=== PATIENT | male | born 1995 | race Caucasian/White ===

== ENCOUNTER 2025-01-06 06:08 | Emergency (ER) | payer BC, SELFPAY ==
--- NOTE | ~2025-01-06 | CT_ITS ---
CLINICAL INDICATION: Epigastric abdominal pain COMPARISON: None. TECHNIQUE: Multiple contiguous axial images of the abdomen and pelvis were performed following the ad ministration of with 100 mL Omnipaque-350 intravenous contrast The dose-length product (DLP) was 1369.23 mGy-cm. Automated exposure control and iterative reconstruction technique were employed. FINDINGS/OBSERVATIONS: Visualized lower thorax: The bilateral lung bases are clear. The heart is of normal size, without pericardial effusion. Small hiatal hernia is present. Liver: The liver demonstrates homogeneous enhancement and is enlarged measuring 20 cm in longitudinal dimens ion. Gallbladder and biliary system: The gallbladder is only minimally distended, and otherwise unremarkable. Pancreas: The pancreas enhances homogeneously without ductal dilatation. Spleen: The spleen enhances homogeneously and is not enlarged. Kidneys: Multiple well-circumscribed foci of fluid attenuation within the bilateral kidneys, represen ting a (likely) simple cysts, but too small to characterize. The remainder of the bilateral kidneys otherwise enhance symmetrically without hydronephrosis or adis l calculi. Adrenal glands: Unremarkable. Gastrointestinal tract: Mural thickening within the fluid-filled distended stomach and duodenum with surrounding inflammatory change, findings consistent with (likely) gastroduodenitis. Fecal stasis within the colon. Appendix: The air-filled appendix is of normal caliber (axial series, images 144 through 160). Vasculature: Unremarkable. Lymph nodes: No pathologically enlarged or morphologically suspicious lymph nodes within the retroperitoneum or at the root of the mesentery. Scattered nonpathologically enlarged lymph nodes within the retroperitoneum and at the root of the me sentery. Pelvic structures: The bladder is only minimally distended, and otherwise unremarkable. The prostate gland is not enlarged. Body wall and musculoskeletal: No significant degenerative disease within the lower thoracic or lumbosacral spine. IMPRESSION: Findings suggesting acute gastroduodenitis, as detailed above. Multiple (likely) simple cysts within the bilateral kidneys. Reviewed, dictated and finalized at location A.
--- OUTSIDE RECORDS SUMMARY | 2025-01-06 06:10 | XMS_ITS | Continuity of Care Document ---
Author Organization [facility] Address [address] [place] [address] Phone Care Team Providers Care Resourcing Advisor Name Role Phone Unavailable Unavailable Unavailable Advance Directives Directive Yes / No Effective Date File Name No Information Encounters Encounter Description Practice Location Reason(s) For Visit Diagnoses Date Provider Providers Copied on Encounter [facility], [address], [place], [address], [place] tel:[phone] [facility] No Information No Information Referring Provider: ROBERT CROUCH E, [address], [place], [address]. tel:[phone] Family History Family Member Type Diagnosis Age At Onset No Information Payers Payer name Insurance type Covered republican ID Authoriza tion(s) [facility] IN[facility]MNITY [id number] Social History Type Description Quantity Date Captured Comments Sex Male Smoking Status No Information Chief Complaint And Reason For Visit No Information History Of Present Illness Encounter Date Complaint History Of Prese nt Illness No Information Instructions Date Instruction Additional Infor mation No Information Assessments Type Assessment Date No Information
--- OUTSIDE RECORDS SUMMARY | 2025-01-06 06:10 | XMS_ITS | Clinical Summary ---
Author Organization [facility] Address [address] [place] [id number] Care Team Providers Care Software Controls Engineer Name Role Phone Unavailable Primary Care Provider Unavailabl e Social History Tobacco Use Types Packs/Day Years Used Date Smoking Tobacco: Never Assessed Sex and Gender Information Value Date Recorded Sex Assigned at Not on file Legal Sex Male 11:38 AM CDT Gender Identity Not on file Sexual Orientation Not on file Plan of Treatment Health Maintenance Due Date Last Done Comments Hepatitis C Virus (HCV) Screening 1995 SARS-COV-2 Immunization ( season) 2024 Influenza Immunization (#1) 02/06/202506/2013, 04/27/2013, 04/03/2012, Additional history exists Respiratory Syncytial Virus (RSV) Immunization (Adult) (1 - 1-dose 75+ series) 2071 Hepatitis B Immunization Completed 997, 1996, 1996 DTaP/Tdap/Td Immunization Discontinued 2006, 09/23/2001, 01/09/1998, Additional history exists TdaP Immunization Completed 11/13/2006 Meningococcal Immunization (ACWY) Completed 09/19/2014, 02/14/2011 Human Papillomavirus (HPV) Immunization Completed 01/20/2015, 09/19/2014, 03/08/2014 Pneumococcal Immunization Combined Aged Out No longer eligible based on patient's age to complete this topic Rotavirus Immunization Aged Out No lo nger eligible based on patient's age to complete this topic
[2025-01-06 06:17] VITALS: BP 140/88; PULSE 67; RESP 16; TEMP 36.6; O2SAT 98
[2025-01-06 06:32] LABS: Hematocrit 43.7 % (42.0-52.0); Hemoglobin 14.8 g/dL (14.0-18.0); Immature Granulocyte Percent A 0.4 % (0-0.5); Lymphocytes Absolute Auto 2.07 K/mm3 (0.9-3.2); Mean Corpuscular HGB Conc 33.9 g/dl (32-36); Mean Corpuscular Hemoglobin 29.2 pg (26-34); Mean Corpuscular Volume 86.4 fl (80-100); Nucleated Red Blood Cells Absolute Auto 0.000 K/mm3 (0.0-0.012); Nucleated Red Blood Cells Perc 0.0 % (0.0-0.2); Platelet Count Result 352 k/mm3 (150-375); Red Blood Count 5.06 M/mm3 (4.6-6.20); White Blood Count 12.6 K/mm3 (4.5-10.0)
[2025-01-06 06:56] LABS: Add Urine Microscopic? YES; Appearance Urine Cloudy (Clear); Glucose Urine UA Negative (Negative); Leukocyte Esterase Ur Negative LEU/UL (Negative); Nitrate Urine Negative (Negative); Non Pathogenic Casts 0-2; Specific Grav Ur 1.021 (1.001-1.035)
[2025-01-06 06:58] LABS: Alanine Aminotransferase 36 U/L (6-50); Albumin Level 4.5 g/dL (3.5-5.1); Alkaline Phosphatase 57 U/L (38-126); Anion Gap 9 mmol/L (4-12); Aspartate Amino Transferase 28 U/L (17-59); Bilirubin,Total 0.6 mg/dL (0.2-1.3); Blood Urea Nitrogen 11 mg/dL (9-20); Calcium 10.0 mg/dL (8.4-10.2); Carbon Dioxide 27 mmol/L (22-30); Chloride 102 mmol/L (98-107); Estimated CRCL calculation 165 ml/min; Estimated Glomerular Filt Rate > 60; Glucose 141 mg/dL (65-110); Lipase 113 U/L (23-300); Potassium 3.9 mmol/L (3.4-5.0); Sodium 138 mmol/L (137-145); Total Protein 7.7 g/dL (6.3-8.2)
[2025-01-06 07:48] VITALS: BP 139/90; PULSE 75; RESP 17; O2SAT 97
--- OUTSIDE RECORDS SUMMARY | 2025-01-06 07:53 | XMS_ITS | Clinical Summary ---
Author Organization [facility] Address [address] [place] [phone] Care Team Providers Care Charge Attendant Name Role Phone Unavailable Primary Care Provider [...]
--- OUTSIDE RECORDS SUMMARY | 2025-01-06 07:53 | XMS_ITS | Continuity of Care Document ---
Author Organization [facility] Address [address] [place] [address] Phone Care Team Providers Care Collar Separator Name Role Phone Unavailable Unavailable Unavailable Advance Directives Directive Yes / No Effective Date File Name No Information Encounters Encounter Description Practice Location Reason(s) For Visit Diagnoses Date Provider Providers Copied on Encounter [facility], [address], [place], [address], [place] tel:[phone] [facility] No Information No Information Referring Provider: ROBERT CROUCH E, [address], [place], [address]. tel:[phone] Family History Family Member Type Diagnosis Age At Onset No Information Payers Payer name Insurance type Covered republican ID Authoriza tion(s) [facility] INDEMNITY [id number] Social History Type Description Quantity Date Captured Comments Sex Male Smoking Status No Information Chief Complaint And Reason For Visit No Information History Of Present Illness Encounter Date Complaint History Of Prese nt Illness No Information Instructions Date Instruction Additional Infor mation No Information Assessments Type Assessment Date No Information
--- OUTSIDE RECORDS SUMMARY | 2025-01-06 07:53 | XMS_ITS | Clinical Summary ---
Author Organization [facility] Address [address] [place] [id number] Care Team Providers Care Income Tax Analyst Name Role Phone Unavailable Primary Care Provider Unavailabl e Social History Tobacco Use Types Packs/Day Years Used Date Smoking Tobacco: Never Assessed Sex and Gender Information Value Date Recorded Sex Assigned at Not on file Legal Sex Male 8:37 PM CDT Gender Identity Not on file Sexual Orientation Not on file Last Filed Vital Signs Vital Sign Reading Time Taken Comments Blood Pressure 124/66 11/20/2014 11:00 AM CDT Pulse - - Temperature - - Respiratory Rate - - Oxygen Saturation - - Inhaled Oxygen Concentration - - Weight 108.9 kg (240 lb) 11/20/2014 11:00 AM CDT Height 167.6 cm (5' 6) 11/20/2014 11:00 AM CDT Body Mass Index 38.74 11/20/2014 11:00 AM CDT Plan of Treatment Health Maintenance Due Date Last Done Comments Annual Physical 1999 Hepatitis C 2014 DTaP, Tdap and Td Vaccines ( 1 - Tdap) 2015 Hepatitis B Vaccines (1 of 3 - 19+ 3-dose series) 2015 HPV Vaccines (1 - 3-dose SCD M series) 2023 COVID-19 Vaccine ( - 2023-2 5 season) 2024 Meningococcal B Vaccine Aged Out No l onger eligible based on patient's age to complete this topic Meningococcal Vaccine Aged Out No demar florinda eligible based on patient's age to complete this topic Pneumococcal Vaccine: Pediat rics (0 to 5 Years) and At-Risk Patients (6 to 49 Years) Aged Out No longer eligible b ased on patient's age to complete this topic RSV Immunizations Under 20 Months Aged Out No longer eligible based on patient's age to complete this topic
--- NOTE | 2025-01-06 08:27 | ED_ITS ---
HPI - General Adult General Chief complaint: Abdominal Pain Stated complaint: abd pain Time Seen by Provider: 01/06/25 07:04 History of Present Illness HPI narrative: 29 year old male present to the emergency department for evaluation for upper abdominal pain. Patient does have history of diabetes does take tirzepatide and metformin. Patient states he was having increased pain last night but does feel to be improved now. Patient describes left upper quadrant epigastric pain. Patient did have Light's last night. Patient denies any heavy alcohol use, denies any NSAID use, patient does take Tylenol for pain control. Patient does have associated nausea. Related Data Allergies Allergy/AdvReac Type Severity Reaction Status Date / Time No Known Allergies Allergy Verified 01/06/25 08:30 Review of Systems 2 Review of Systems: All systems reviewed & are unremarkable except as noted in HPI and below Exam 2 Narrative: APPEARANCE: Well appearing, no pain, no distress, well-nourished. HEAD: normocephalic, atraumatic. EYES: PERRLA/EOMI, conjunctivae clear. NOSE: Normal no drainage EARS:TMS clear with good light reflex. THROAT: Pharynx clear, no exudate. NECK: Supple. No adenopathy, no masses. RESPIRATORY: Airway patent, respirations nonlabored. Clear to auscultation bilaterally, no rales, rhonchi, wheezing. CARDIOVASCULAR: Regular rate and rhythm without murmurs rubs or gallops. ABDOMINAL: No abdominal tenderness to palpation with normal bowel sounds, nonsurgical at MUSCULOSKELETAL: Moves all extremities. Strength/ROM intact, No edema, No calf tenderness. NEURO: Alert. Cranial nerves II through XII intact. Good gait. Good coordination SKIN: Warm, dry. Normal Color Course Vital Signs Vital signs: Vital Signs Temperature 97.9 F 01/06/25 06:17 Pulse Rate 67 01/06/25 06:17 Respiratory Rate 16 01/06/25 06:17 Blood Pressure 140/88 01/06/25 06:17 Pulse Oximetry 98 01/06/25 06:17 Oxygen Delivery Room Air 01/06/25 06:17 Temperature 97.9 F 01/06/25 06:17 Pulse Rate 71 01/06/25 08:44 Respiratory Rate 13 01/06/25 08:44 Blood Pressure 135/91 H 01/06/25 08:44 Pulse Oximetry 96 01/06/25 08:44 Oxygen Delivery Room Air 01/06/25 06:17 Medical Decision Making MDM Narrative Medical decision making narrative: 29-year-old male present to the emergency department for evaluation for abdominal pain. Patient is currently afebrile with no leukocytosis hemoglobin of 14.8. No acute abnormalities on the patient's CMP including a normal lipase. UA was negative for infection. CT scan does show gastroduodenitis. Patient was treated with IV Protonix and IV Zofran emergency department. Patient will be discharged home with instructions for a gastritis/esophagitis diet along with avoiding alcohol, NSAIDs to have follow-up with primary care physician for additional GI follow-up Differential Diagnosis Differential Diagnosis: Gastritis, duodenitis, colitis, diverticulitis, appendicitis, pancreatitis Vital Signs Vital Signs: Vital Signs Temperature 97.9 F 01/06/25 06:17 Pulse Rate 67 01/06/25 06:17 Respiratory Rate 16 01/06/25 06:17 Blood Pressure 140/88 01/06/25 06:17 Pulse Oximetry 98 01/06/25 06:17 Oxygen Delivery Room Air 01/06/25 06:17 Temperature 97.9 F 01/06/25 06:17 Pulse Rate 71 01/06/25 08:44 Respiratory Rate 13 01/06/25 08:44 Blood Pressure 135/91 H 01/06/25 08:44 Pulse Oximetry 96 01/06/25 08:44 Oxygen Delivery Room Air 01/06/25 06:17 Lab Data Lab results reviewed: Yes I reviewed the patient's lab results. 01/06/25 06:26 01/06/25 06:26 Labs: Lab Results 01/06/25 01/06/25 Range/Units 06:26 06:45 WBC 12.6 H (4.5-10.0) K/mm3 RBC 5.06 (4.6-6.20) M/mm3 Hgb 14.8 (14.0-18.0) g/dL Hct 43.7 (42.0-52.0) % MCV 86.4 (80-100) fl MCH 29.2 (26-34) pg MCHC 33.9 (32-36) g/dl RDW 12.5 (11.5-14.5) % Plt Count 352 (150-375) k/mm3 MPV 9.2 (7.4-10.4) fl Immature Gran % (Auto) 0.4 (0-0.5) % Neut % (Auto) 76.2 H (45.5-73.1) % Lymph % (Auto) 16.4 L (18.3-44.2) % [place] % (Auto) 6.6 (2.6-8.5) % Eos % (Auto) 0.2 (0-4.4) % Baso % (Auto) 0.2 (0.2-1.2) % Lymph # (Auto) 2.07 (0.9-3.2) K/mm3 [place] # (Auto) 0.8 H (0.1-0.6) K/mm3 Eos # (Auto) 0.0 (0-0.3) K/mm3 Baso # (Auto) 0.0 (0.0-0.1) K/mm3 Abs Immat Gran (auto) 0.05 H (0.00-0.031) K/mm3 Absolute Neuts (auto) 9.6 H (1.3-6.7) K/mm3 Absolute Nucleated RBC 0.000 (0.0-0.012) K/mm3 Nucleated RBC % 0.0 (0.0-0.2) % Sodium 138 (137-145) mmol/L Potassium 3.9 (3.4-5.0) mmol/L Chloride 102 (98-107) mmol/L Carbon Dioxide 27 (22-30) mmol/L Anion Gap 9 (4-12) mmol/L BUN 11 (9-20) mg/dL Creatinine 0.71 (0.7-1.3) mg/dL Estim Creat Clear Calc 165 ml/min Estimated GFR > 60 (59 - ) Glucose 141 H (65-110) mg/dL Calcium 10.0 (8.4-10.2) mg/dL Total Bilirubin 0.6 (0.2-1.3) mg/dL AST 28 (17-59) U/L ALT 36 (6-50) U/L Alkaline Phosphatase 57 (38-126) U/L Total Protein 7.7 (6.3-8.2) g/dL Albumin 4.5 (3.5-5.1) g/dL Lipase 113 (23-300) U/L Urine Color Yellow (Yellow) Urine Appearance Cloudy H (Clear) Urine pH 8.5 (5.0-9.0) Ur Specific [place] 1.021 (1.001-1.035) Urine Protein Negative (Negative) mg/dL Urine Glucose (UA) Negative (Negative) mg/dL Urine Ketones Trace H (Negative) mg/dL Ur Blood (Man) Negative (Negative) Urine Nitrate Negative (Negative) Urine Bilirubin Negative (Negative) Urine Urobilinogen 1.0 (<2.0) mg/dL Leukocyte Esterase Rfl Negative (Negative) FARZANA/UL Urine RBC 0-2 (0-2) /hpf Urine WBC 0-5 (0-3) /hpf Ur Squamous Epith Cells None seen (Few) /hpf Urine Bacteria None seen /hpf Urine Casts 0-2 Imaging Data Radiologist's impression: Impressions Abdomen/Pelvis CT 01/06/25 07:29 IMPRESSION: Findings suggesting acute gastroduodenitis, as detailed above. Multiple (likely) simple cysts within the bilateral kidneys. Discharge Plan Discharge Clinical Impression: Gastritis/duodenitis Patient Disposition: Home Condition: Stable Instructions: Antibiotic Form, Diet for Stomach Ulcers and Gastritis (ED), Abdominal Pain (ED), Duodenitis (ED) Additional Instructions: Avoid NSAIDs, avoid alcohol follow a bland diet. Omeprazole as directed for the next 14 days. Zofran as needed for nausea control. Have close follow-up with your primary care physician regarding continuing your home medications. You will need close follow-up with GI. If you have any worsening symptoms then please call or return to the emergency department. Patient Language: Citizen Of [place] Prescriptions: New omeprazole 20 mg capsule,delayed release(DR/EC) 20 mg PO DAILY 14 Days Qty: 14 0RF ondansetron 4 mg tablet,disintegrating 4 mg PO Q8H PRN (Reason: nausea and vomiting) Qty: 14 0RF Follow-up/Referrals: Naveed Canales DO [Primary Care Provider] - Galileo Barnett MD [Physician] -
[2025-01-06] MEDS: ONDANSETRON INJ 4 MG/2 ML VIAL IV PUSH (08:38)
[2025-01-06] MEDS: PANTOPRAZOLE SODIUM IV 40 MG VIAL IV PUSH (08:38)
[2025-01-06 08:44] VITALS: BP 135/91; PULSE 71; RESP 13; O2SAT 96
== END 2025-01-06 08:49 | disposition home or self-care (01) ==
PROVIDERS: Emergency Medicine; Emergency Provider Emergency Medicine; PCP Family Medicine
DX: K29.90 Gastroduodenitis, unspecified, without bleeding (principal); E11.9 Type 2 diabetes mellitus without complications; Z79.84 Long term (current) use of oral hypoglycemic drugs; Z79.85 Long-term (current) use of injectable non-insulin antidiabetic drugs; N28.1 Cyst of kidney, acquired
CPT/HCPCS: 36415; 74177; 80053; 81001; 83690; 85025; 96374; 96375; 99284; J2405; J2470; Q9967

== ENCOUNTER 2025-03-10 00:50 | Day surgery (SDC) | payer BC, SELFPAY ==
[2025-02-28 10:22] VITALS: BMI 31.4
[2025-03-10 12:14] VITALS: BP 111/73; PULSE 65; RESP 18; TEMP 36.6; O2SAT 100
[2025-03-10] MEDS: LACTATED RINGERS 1,000 ML 150 ML IV CONT (12:25)
--- NOTE | 2025-03-10 14:08 | WPDANESEPPF ---
Anes - Initial Pre Proc Eval Procedure: Operation Date: 03/10/25 13:30 Proposed Procedures p Esophagogastroduodenoscopy EGD - Galileo Barnett MD Date/Time: 03/10/25 14:08 Surgeon: Galileo Barnett MD Pre Op Diagnosis: Nausea Pre Op Diagnosis: Nausea, Unspecified abdominal pain Patient Data Age: 29 Gender: M Height: 1.8 m Weight: 102.2 kg Last Vital Signs Temp 36.6 C 03/10/25 12:14 Pulse 65 03/10/25 12:14 Resp 18 03/10/25 12:14 BP 111/73 03/10/25 12:14 Pulse Ox 100 03/10/25 12:14 O2 Del Method Room Air 03/10/25 12:14 Allergies Allergy/AdvReac Type Severity Reaction Status Date / Time No Known Allergies Allergy Verified 03/10/25 12:11 Home Medications ?Medication ?Instructions ?Recorded ?Confirmed ?Type omeprazole 20 mg capsule,delayed 20 mg PO DAILY 14 days #14 caps 01/06/25 03/10/25 Rx release ondansetron 4 mg disintegrating 4 mg PO Q8H PRN nausea and 01/06/25 02/28/25 Rx tablet vomiting #14 tabs lisinopril 10 mg tablet 10 mg PO DAILY 01/17/25 03/10/25 History metformin 500 mg tablet 2,000 mg PO DAILY 01/17/25 03/10/25 History rosuvastatin 5 mg tablet 5 mg PO DAILY 01/17/25 03/10/25 History tirzepatide 5 mg/0.5 mL 5 mg subcut WEEKLY 01/17/25 03/10/25 History subcutaneous pen injector (Mounjaro) Laboratory Tests 03/10/25 12:24 POC Capillary Glucose 90 mg/dl (65-105) Patient hx anesthesia problems: none Family hx anesthesia problems: none Results Review: All pre-operative results and documents have been reviewed as part of the pre-operative evaluation. [facility] Past Medical History Medical History Nausea Abdominal pain Social History Social History Smoking status: Never smoker Alcohol intake: never Substance use: never Substance use type: does not use Living arrangements: with family Spiritual care concerns: No Anes - Eval Final PreProcedure Day of Procedure 03/10/25 14:08 Patient weight: normal Heart: regular rate and rhythm Lungs: clear to auscultation and normal air movement Airway: Mallampati scale class II Neurological: alert and oriented Last oral intake: >/= 8 hours ASA classification: II Emergent: no Anesthetic plan: proceed Anesthesia type and monitoring: general GIVS and standard monitoring Results Review: All pre-operative results and documents have been reviewed as part of the pre-operative evaluation. Informed Consent: The patient's anesthetic plan and its attendant risks and benefits were discussed with the patient/family/POA. Questions were solicited and answers provided to the satisfaction of the patient/family/POA.
--- NOTE | 2025-03-10 14:09 | PM.HPGS ---
History of Present Illness History of Present Illness Consent: Risks, benefits, and alternatives have been discussed and questions answered. Patient agrees to proceed with procedure. Chief complaint: Nausea, Unspecified abdominal pain Narrative: Wyatt Brown is a 29 year old male here for egd, 2 months ago presented to ER with abdominal pain, CT scan showed gastroduodenitis, given 2 weeks of omeprazole, no more pain and he has been doing ok. Review of Systems Review of Systems: All systems reviewed & are unremarkable except as noted in HPI and below PMFSH Past Medical History Medical History Nausea Abdominal pain Social History Social History Smoking status: Never smoker Alcohol intake: never Substance use: never Substance use type: does not use Living arrangements: with family Spiritual care concerns: No Meds Home Medications and Allergies Home Medications ?Medication ?Instructions ?Recorded ?Confirmed ?Type omeprazole 20 mg capsule,delayed 20 mg PO DAILY 14 days #14 caps 01/06/25 03/10/25 Rx release ondansetron 4 mg disintegrating 4 mg PO Q8H PRN nausea and 01/06/25 02/28/25 Rx tablet vomiting #14 tabs lisinopril 10 mg tablet 10 mg PO DAILY 01/17/25 03/10/25 History metformin 500 mg tablet 2,000 mg PO DAILY 01/17/25 03/10/25 History rosuvastatin 5 mg tablet 5 mg PO DAILY 01/17/25 03/10/25 History tirzepatide 5 mg/0.5 mL 5 mg subcut WEEKLY 01/17/25 03/10/25 History subcutaneous pen injector (Mounjaro) Allergies Allergy/AdvReac Type Severity Reaction Status Date / Time No Known Allergies Allergy Verified 03/10/25 12:11 Vital Signs Vital Signs - 24 hr 03/10/25 12:14 Temperature 97.9 F Pulse Rate 65 Respiratory Rate 18 Blood Pressure 111/73 Pulse Oximetry 100 Oxygen Delivery Room Air Exam Const: General: comfortable and no acute distress HENMT: Face/Nose/Sinus: Normal nares present Eyes: General: appearance normal, both eyes and all related structures Resp: Auscultation: clear to auscultation bilaterally Cardio: Rate: regular rate Rhythm: regular rhythm GI: Inspection: non-distended GI Palp: Yes Soft to palpation Skin: General skin exam: normal color Extrem: General: normal to inspection Psych: Mental Status: mental status grossly normal Assessment and Plan Assessment and plan (1) Abdominal pain: Code(s): R10.9 - Unspecified abdominal pain Status: Acute Assessment and Plan: egd with bx
--- NOTE | 2025-03-10 14:19 | S_PTH ---
PATIENT: Wyatt Camarena LOC: [facility] Black#:[id number] AGE/SX: 29/M ROOM: RE03/10/[address]: Galileo Barnett MD : 1995 BED: DIS: 03/10/2025 SPEC #: [id number] RECD: 03/13/25 09:01 STATUS: YAHAIRA REDangelo #: [id number] THANH: 03/10/25 14:[address]: Galileo Barnett DEPT: [facility] Surgical RECD BY: Amirah Islas ENTERED: 03/13/25 09:01 SP TYPE: Surgical OTHR DR: Naveed Canales DO Tissues: A - Gastric Biopsy Procedures: Hematoxylin and Eosin Stain Gross and Microscopic Level 4
[2025-03-10 14:24] VITALS: BP 110/67; PULSE 84; RESP 20; O2SAT 99
[2025-03-10 14:34] VITALS: BP 111/72; PULSE 74; RESP 18; O2SAT 99
[2025-03-10 14:44] VITALS: BP 110/69; PULSE 72; RESP 18; O2SAT 100
== END 2025-03-10 14:45 | disposition home or self-care (01) ==
PROVIDERS: PCP Family Medicine; Referring Provider Nurse Practitioner Family; Visit Provider Internal Medicine Gastroenterology
PROC: 0DJ08ZZ Inspection of Upper Intestinal Tract, Via Natural or Artificial Opening Endoscopic (ICD-10-PCS; CPT 43239; principal; 2025-03-10 13:30)
DX: K29.50 Unspecified chronic gastritis without bleeding (principal); Z79.84 Long term (current) use of oral hypoglycemic drugs; Z79.85 Long-term (current) use of injectable non-insulin antidiabetic drugs
CPT/HCPCS: 43239; 82948; 88305; J2003; J2704; J7120